=== PATIENT | male | born 1995 | race Two or more races ===

== ENCOUNTER → 2018-10-09 | Outpatient (CLI) | payer OTHER | END | disposition home or self-care (01) | LOC: CT 15:18 | PROC: BW28ZZZ Computerized Tomography (CT Scan) of Head (ICD-10-PCS; principal; 2018-10-09) | DX: J32.0 Chronic maxillary sinusitis (principal) ==

== ENCOUNTER 2019-06-05 22:24 | Emergency (ER) | payer OTHER ==
[~2019-06-05] VITALS: Ht 182.9 cm; Wt 206.4 kg
[2019-06-05 22:44] VITALS: Ht 182.9 cm; Wt 206.4 kg
[2019-06-05 23:57] LABS: PLATELET COUNT 214 x10^3mcL (130-400); RED CELL DISTRIBUTION WIDTH 13.9 % (11.5-14.5)
[2019-06-05 23:59] LABS: BASOPHIL % 4.5 % (0-2)
[2019-06-06 00:12] LABS: CALCIUM 8.6 mg/dL (8.5-10.1); CARBON DIOXIDE 28.9 mmol/L (21-32); CHLORIDE SERUM 108 mmol/L (98-107); CREATININE SERUM 1.1 mg/dL (0.7-1.3); GFR1 > 60 mL/min; GLUCOSE SERUM 98 mg/dL (74-106); POTASSIUM SERUM 3.9 mmol/L (3.5-5.1); SODIUM SERUM 144 mmol/L (136-145)
[2019-06-06 00:18] LABS: ALKALINE PHOSPHATASE 84 U/L (46-116); ALT/SGPT 249 U/L (16-63); AST/SGOT 173 U/L (15-37); BILIRUBIN TOTAL 0.3 mg/dL (0.20-1.00); TOTAL PROTEIN, SERUM 6.5 g/dL (6.4-8.2)
[2019-06-06 00:21] LABS: ALBUMIN 2.9 g/dL (3.4-5.0)
[2019-06-06 00:55] VITALS: BP 133/59
== END 2019-06-06 00:55 | disposition home or self-care (01) ==
LOC: ED 22:24
PROVIDERS: Emergency Medicine
DX: I10 Essential (primary) hypertension (principal); J98.01 Acute bronchospasm; F41.9 Anxiety disorder, unspecified; J45.909 Unspecified asthma, uncomplicated; Z86.19 Personal history of other infectious and parasitic diseases
CPT/HCPCS: 36415; J7613; J7644